=== PATIENT | male | born 1940 | race Caucasian/White ===

== ENCOUNTER 2017-08-01 12:56 | Observation (INO) ==
[2017-08-01] MEDS ORDERED: LABETALOL 100mg/20ml INJECTION IVP ONE (13:09)
[2017-08-01] MEDS ORDERED: NS 1,000 ML IV ONE (13:26)
[2017-08-01] MEDS ORDERED: DiltiaZEM 25 MG/5 ML INJECTION IVP ONE ×2 (13:56→16:01)
--- NOTE | 2017-08-01 13:58 | Emergency Department Report ---
Cardiac General HPI - General Chief Complaint: Arrhythmia/Palpitations Stated Complaint: svt Time Seen by Provider: 08/01/17 13:09 - History of Present Illness HPI narrative: 76-year-old gentleman presents with tachycardia. He went to see Dr. Coles and while being checked and it was noted that his heart rate was 155. EKG was obtained which suggested SVTs and Dr. Coles contacted me to send him to the ED for evaluation. Patient arrives essentially asymptomatic, stating that he did not even know his heart rate had been running so fast. He said no fever or chills, no recent chest pain. No shortness of breath, although he has not been active recently. He did have a cardiac stent placed in December 2014 to repair "85% blockage". He takes lisinopril, a statin, daily aspirin. - Related Data Home Medications Medication Instructions Recorded Confirmed Aspirin [Ecotrin] 81 mg PO DAILY 07/23/17 08/01/17 Potassium 99 mg PO DAILY 07/23/17 08/01/17 Previous Rx's Medication Instructions Recorded Lisinopril [Prinivil] 20 mg PO DAILY #7 tab 07/23/17 Allergies Allergy/AdvReac Type Severity Reaction Status Date / Time Dyohebc-[id number]-Wvz Reductase Allergy Mild MYALGIAS Verified 08/01/17 13:12 Inhibitor prochlorperazine AdvReac Intermediate Verified 08/01/17 13:12 [From Compazine] Review of Systems All systems: reviewed and negative except as stated PFSH Patient Stated Medical History Cardiac Arrhythmia Yes: SVT Hypertension Yes - Social History Smoking status: Never smoker Substance use type: does not use Physical Exam - Limitations Limitations: no limitations - General General appearance: alert, in no apparent distress - Normal Exams: Head:: Normocephalic without trauma Chest/Respirations:: Clear all allen, with good airflow, and symmetry bilaterally Cardiovascular:: without murmur or gallop, Pulses 2+ all extremities, capillary refill, <2 seconds all extremities Abdomen:: Bowel sounds positive, soft, non-tender, non-distended, no hepatosplenomegaly, masses or bruits noted Neurological:: Patient is alert, and oriented, cranial nerves, motor/sensory/ cerebellar, exams w/o gross deficits, to observation Psychiatric:: Patient exhibits, appropriate attention, emotion and affect - Cardiovascular Cardiovascular exam: Present: tachycardia Course Vital Signs Temperature 98.0 F 08/01/17 12:43 Pulse Rate 155 H 08/01/17 12:43 Respiratory Rate 18 08/01/17 12:43 Blood Pressure 148/101 H 08/01/17 12:43 Pulse Oximetry 95 08/01/17 12:43 Temperature 98.0 F 08/01/17 12:43 Pulse Rate 156 H 08/01/17 13:10 Respiratory Rate 18 08/01/17 12:43 Blood Pressure 148/101 H 08/01/17 12:43 Pulse Oximetry 95 08/01/17 12:43 Cardiac General - [facility] Narrative Medical decision making narrative: EKG repeated on arrival to ED, atrial flutter appears unlikely at this time. Heart rate 155. IV placed and 1 L normal saline bolus. Patient given 10 mg of labetalol IV which had minimal impact. He was then given 10 mg of Cardizem. His heart rate decreased from 155 down to 90. Since that time it has slowly but steadily increased and is currently 110-130 bpm. Enzymes are negative and other labs are appropriate including TSH. Patient has no previous history of A. flutter or A. fib. Dr. Duque agreed to consult on the patient, patient will be admitted to internal medicine service and hospitalist. Patient we will need drip overnight to help control his rate and may be appropriate for conversion after SYEDA tomorrow. This will be determined during his hospitalization. - Lab Data Result diagrams: 08/01/17 13:10 08/01/17 13:10 Lab Results 08/01/17 08/01/17 08/01/17 Range/Units 13:10 13:10 13:10 WBC 7.0 (4.5-11.0) T/MM3 RBC 5.57 (4.50-5.90) M/MM3 Hgb 17.0 (13.5-17.5) GM/DL Hct 50.8 (41-53) % MCV 91.2 (80-100) UM3 MCH 30.5 (26-34) UUG MCHC 33.5 (31-37) GM/DL RDW Std Deviation 44.3 (36.9-50.2) FL Plt Count 233 (130-400) T/MM3 MPV 10.9 (9.4-12.4) UM3 Immature Gran % (Auto) 0.1 (0.0-0.5) % Neut % (Auto) 58.1 (33-66) % Lymph % (Auto) 31.7 (23-45) % [place] % (Auto) 8.9 (0-9.0) % Eos % (Auto) 0.9 (0-4) % Baso % (Auto) 0.3 (0-2) % Neut # (Auto) 4.1 (1.8-7.7) T/MM3 Lymph # (Auto) 2.2 (1-4.8) T/MM3 [place] # (Auto) 0.6 (0-0.8) T/MM3 Eos # (Auto) 0.1 (0-0.5) T/MM3 Baso # (Auto) 0.0 (0-0.2) T/MM3 Abs Immat Gran (auto) 0.01 (0.00-0.03) T/MM3 Turbidity < 20 (0-20) Sodium 142 (134-144) MEQ/L Potassium 4.5 (3.6-5) MEQ/L Chloride 105 (98-107) MEQ/L Carbon Dioxide 25 (22-30) MEQ/L Anion Gap 12 (5-15) MEQ/L BUN 21.0 H (9-20) MG/DL Creatinine 1.2 (0.8-1.5) MG/DL GFR Calculation 59 BUN/Creatinine Ratio 18 (6-26) RATIO Glucose 105 (75-110) MG/DL Calculated Osmolality 276 (261-280) MOSM/KG Calcium 9.1 (8.4-10.2) MG/DL Total Bilirubin 0.80 (0.20-1.30) MG/DL Icterus Index < 2 (0-7) AST 22 (17-59) U/L ALT 33 (21-72) U/L Alkaline Phosphatase 80 (38-126) U/L Troponin I < 0.012 (0-0.12) ng/ml Total Protein 8.1 (6.3-8.2) G/DL Albumin 4.6 (3.5-5.0) G/DL Globulin 3.5 (2.4-3.6) G/DL Albumin/Globulin Ratio 1.3 (1.1-2.2) RATIO TSH 2.16 (0.47-4.68) MIU/L Specimen Hemolysis < 15 < 15 (0-25) Critical Care Time Critical Care Time: Yes Total Critical Care Time: 40 Attestation: I spent greater than 40 minutes in critical care of this patient due to new onset atrial flutter. Blood pressure did drop significantly considering his history of hypertension and heart rate was significantly elevated requiring direct intervention with IV labetalol and IV Cardizem. Time spent in critical care included direct care of patient as well as consult with specialist, management of symptoms and illness. Disposition Clinical Impression: Atrial flutter Disposition: 02 To [facility] Condition: Improved Prescriptions: No Action Aspirin [Ecotrin] 81 mg PO DAILY Lisinopril [Prinivil] 20 mg PO DAILY #7 tab Potassium 99 mg PO DAILY Referrals: Abdirahman Coles MD [Family Provider] - Time of Disposition: 15:33 - Seen By: physician
[2017-08-01] MEDS: SALINE FLUSH 10ml SYRINGE IVF PRN ×2 (13:59→16:05)
--- NOTE | 2017-08-01 14:06 | XRay Report ---
INDICATION: tachycardia PROCEDURE: CHEST 2-VIEWS UPRIGHT (PA & LAT) Encounter: Initial Comparison: July 23, 2017 Findings: The lungs are stable in appearance without new focal airspace consolidation. There is no pleural effusion or pneumothorax. The heart size, pulmonary vascularity and mediastinal contours are unchanged. IMPRESSION: Stable appearance of the chest without acute cardiopulmonary disease. .
--- NOTE | 2017-08-01 17:03 | History & Physical Report ---
History of Present Illness Date: 08/01/17 Chief complaint: A-fib with RVR HPI: Mr Truong is a pleasant 76 yr old male who act his pulse rate this morning and his machine read 155. He was concerned about this elevation and presented to see his primary care provider, Dr. Warren Coles at his clinic. Lead EKG was obtained that did reveal a tachycardia in the 160s. It was then sent by EMS to [facility] emergency room for acute evaluation. Whether evaluation including laboratory studies were obtained. CBC was normal, chemistry panel unremarkable. Initial troponin undetectable. TSH 2.16. Initial 12-lead EKG did reveal a rate of 155 with atrial flutter, rapid ventricular response. Patient was given 10 milligrams of IV Cardizem and 10 milligrams of IV labetalol. Initially rate decreased into the 80s, however, again increased to the 150s. At that time a repeat dose of Cardizem 10 milligrams IV was given and within the next hour patient did convert to normal sinus rhythm at time of admission. The hospitalist service contacted and accepted patient for outpatient admission for further evaluation and treatment. He has been under the cardiology care of Dr. Smith with [facility]. Review of Systems All systems PM: 10-point ROS was reviewed, no additional remarkable complaints except - Cardiovascular Cardiovascular: Present: chest pain (left anterior) - Respiratory Respiratory: Present: dyspnea Past Medical History HTN Diverticular disease BPH CAD Lower extremity cramping Surgical History: Cardiac stent- 12/2014 (Dr Smith). Colonoscopy- last in 2009 Family History Updates: Father-prostate cancer. Mother-brain tumor. Siblings with colon cancer and sleep apnea - Social History Smoking status: Never smoker Substance use type: does not use Alcohol intake frequency: does not drink Housing: house Household members: spouse Current residence: Apartment/Private Home Social history: PCP Dr Warren Coles Grill Attendant- Dr John Smith Medications Home Medications Medication Instructions Recorded Confirmed Type Aspirin [Ecotrin] 81 mg PO DAILY 07/23/17 08/01/17 History Potassium 99 mg PO DAILY 07/23/17 08/01/17 History Allergies Allergy/AdvReac Type Severity Reaction Status Date / Time Fwrcjvx-Trr-Jpl Reductase Allergy Mild MYALGIAS Verified 08/01/17 13:12 Inhibitor prochlorperazine AdvReac Intermediate Verified 08/01/17 13:12 [From Compazine] Exam Vital Signs: Temperature 98.0 F 08/01/17 12:43 Pulse Rate 108 H 08/01/17 16:40 Respiratory Rate 23 08/01/17 16:40 Blood Pressure 133/90 H 08/01/17 16:40 Pulse Oximetry 96 08/01/17 16:30 Telemetry Rhythm: Sinus Rhythm - Constitutional Present: no acute distress, well nourished, well developed - Routine HEENT Exam Eye: Present: EOMI ENT: Present: mucous membranes moist, dentition normal - Routine Respiratory Exam Present: CTA bilaterally. Absent: wheezes - Routine Cardiovascular Exam Present: RRR, S1, S2. Absent: murmur - Routine Abdominal Exam Present: soft, normoactive bowel sounds, non distended. Absent: tenderness - Routine Extremities Exam Present: no edema, full ROM, pulses intact - Routine Skin Exam Present: intact, dry, warm - Routine Neurological Exam Present: alert, oriented X3, CN II-XII intact, moving all extremities - Routine Psychiatric Exam Present: normal affect, cooperative Results - Labs CBC & Chem 7: 08/01/17 13:10 08/01/17 13:10 Assessment and Plan (1) Atrial flutter with rapid ventricular response Current visit: Yes Status: Acute Assessment and Plan: Impression A-Flutter with rapid ventricular rate Coronary artery disease Hypertension Diverticular disease Lower extremity cramps CKD stage 3-RLL 08/01/17 Plan Admit outpatient status under care of Dr. Levine for atrial flutter with rapid ventricular rate, converted on admission following 2nd dose of Cardizem. He will be admitted to the ICU for close monitoring. Given that he did convert to NSR, will initiate metoprolol 50mg twice a day, this evening and continue to monitor. Obtain ECHO and have it read by Dr Gutierrez tomorrow morning Serial troponins x2 and monitor on cardiac telemetry Consultation placed to Dr Curry (covering at [facility]). Continue on home Lisinopril Lovenox SQ daily for DVT ppx May have cardiac diet now and NPO after midnight. He does wish to be a full code and this order written Discuss further orders and plan of care with attending, Dr. Levine. At time of discharge medical care will return to primary care provider, Dr. Warren Fast DVT Prophylaxis: Lovenox Resuscitation Status: Full Code - Physician Narrative Physician: Karly Levine MD Narrative: Date: 08/01/17 Time: 1809 I have independently evaluated and examined this patient. I reviewed the chart, the patient's history, and the CARD MOUNTER/PA's documented findings as above. We discussed and formulated the assessment and plan as above with additions as below: Mr. Franks was seen with his and son at bedside in the emergency room. He reports checking his blood pressure and pulse daily since he was seen in the emergency room 07/23 and started on lisinopril for hypertension. EKG obtained in the emergency room at that time was sinus rhythm with occasional APCs. The patient reports heart rates generally in the 80s until today. He denied palpitations, chest pain, dyspnea, or lightheadedness today although describes some vague chest discomfort occasionally radiating toward the axilla lasting no more than a second or 2 over the past couple of months. He's not really experience that sensation today may have a slightly different sensation in the upper left chest wall. Heart rate while being evaluated in the emergency room ranged from 122-150. The patient's son expressed concern that the patient has been more fatigued since returning from [place] in October 2016 and more/ frequently since that time but is not aware of any focal deficits or acute changes. The patient is a vague historian but speech is fluent. Respirations are nonlabored with good airflow, there are faint crackles at the bases, no wheezing Irregular rhythm with tachycardia at time of initial assessment Abdomen benign Chest x-ray reviewed by myself-NAD EKG from 07/23 and current EKGs reviewed by myself with current EKGs demonstrating atrial flutter with RVR initially it appeared to be 2:1 conduction and follow-up tracing was more irregular with slower rate overall. There do not appear to be acute ST/T-wave changes although old inferior event cannot be excluded but seems unlikely based on the 07/23/17 EKG. History suggests conversion to atrial flutter within the past 24 hours, family prefers hospitalization for management and rate remains suboptimally controlled after initial IV medications. Hospitalized on observation basis in ICU; additional IV diltiazem to be given with plans to initiate diltiazem drip for rate control overnight. Case was discussed with Dr. Smith-cardiology consultation planned in a.m. to discuss management options further with possible SYEDA cardioversion. However shortly after arrival in ICU patient spontaneously converted to sinus rhythm. Continue to monitor in the event he goes in and out of rhythm and requires further medications. Initiate treatment with metoprolol for rate control/hypertension ( lisinopril discontinued). Echo obtained; further plans per cardiology in a.m. TSH normal, d-dimer to be obtained in a.m. GFR 59 c/w chronic kidney disease stage III Hospital Course Summary Disclaimer: The visit summary below is not to be considered part of the above Progress Note. Hospital Course: 08/01/17 Impression A-Flutter with rapid ventricular rate Coronary artery disease Hypertension Diverticular disease Lower extremity cramps Plan Admit outpatient status under care of Dr. Levine for atrial flutter with rapid ventricular rate, converted on admission following 2nd dose of Cardizem. He will be admitted to the ICU for close monitoring. Given that he did convert to NSR, will initiate metoprolol 50mg twice a day, this evening and continue to monitor. Obtain ECHO and have it read by Dr Gutierrez tomorrow morning Serial troponins x2 and monitor on cardiac telemetry Consultation placed to Dr Curry (covering at [facility]). Continue on home Lisinopril Lovenox SQ daily for DVT ppx May have cardiac diet now and NPO after midnight. He does wish to be a full code and this order written Discuss further orders and plan of care with attending, Dr. Levine. At time of discharge medical care will return to primary care provider, Dr. Warren Coles
[2017-08-01 17:14] VITALS: BMI 33.3
[2017-08-01] MEDS: ENOXAPARIN 40 MG/0.4 ML INJECTION SQ SCH (19:02)
[2017-08-02] MEDS: SALINE FLUSH 10ml SYRINGE IVF PRN (08:31)
[2017-08-02] MEDS: ENOXAPARIN 40 MG/0.4 ML INJECTION SQ SCH (08:31)
[2017-08-02] MEDS ORDERED: ASPIRIN *EC* 81 MG TABLET PO SCH (09:00)
[2017-08-02] MEDS ORDERED: LISINOPRIL 20 MG TABLET PO SCH (09:00)
[2017-08-02 14:22] VITALS: BP 107/58; PULSE 62; RESP 19; TEMP 98.1; O2SAT 95
--- NOTE | 2017-08-02 15:00 | Discharge Summary ---
Discharge Information Date of admission: 08/01/17 15:56 Anticipated date of discharge: 08/02/17 Attending Physician: Karly Levine MD Primary care physician: Abdirahman Coles MD - Discharge Diagnosis (1) Atrial flutter with rapid ventricular response Status: Acute A-Flutter with rapid ventricular rate Coronary artery disease-h/o Hypertension CKD stage 3 - Procedures Procedures: Echocardiogram 08/01/17-report pending - Laboratory Labs: CBC and CMP on admission were unremarkable, GFR 59, creatinine clearance 62 Troponin < 0.0123 D-dimer 192 TSH 2.16 - Radiology Radiology: Stricture admission was unremarkable. History of Present Illness HPI: Mr. Truong was seen with his and son at bedside in the emergency room. He reports checking his blood pressure and pulse daily since he was seen in the emergency room 07/23 and started on lisinopril for hypertension. EKG obtained in the emergency room at that time was sinus rhythm with occasional APCs. The patient reports heart rates generally in the 80s until today when HR was 155. He was subsequently seen his primary care physician's office and EKG demonstrated tachycardia with rate 160 and he was referred to [facility] emergency room for further evaluation. He denied palpitations, chest pain, dyspnea, or lightheadedness today although describes some vague chest discomfort occasionally radiating toward the axilla lasting no more than a second or 2 over the past couple of months. He's not really experiencing that sensation today may have a slightly different sensation in the upper left chest wall. Initial 12-lead EKG in ED revealed a rate of 155 with atrial flutter. Patient was given 10 milligrams of IV Cardizem and 10 milligrams of IV labetalol. Initially rate decreased into the 80s, however, again increased to the 150s. At that time a repeat dose of Cardizem 10 milligrams IV was given and within the next hour patient converted to normal sinus rhythm at time of admission to ICU. 08/02/17 15:14 Hospital Course This is a general summary of the patient's hospital course. For more details refer to the complete medical record. Hospital course: 08/01/17 Impression A-Flutter with rapid ventricular rate Coronary artery disease Hypertension Chronic kidney disease, stage III Diverticular disease Lower extremity cramps Hospital course Mr. Truong was monitored in the ICU overnight. He remained in sinus rhythm after converting shortly after arriving in the ICU. Metoprolol was initiated at a dose of 50 mg twice daily and lisinopril discontinued. Serial troponins, TSH, and d-dimer were unremarkable and twelve-lead EKG on 08/02 revealed sinus rhythm with a rate of 64, normal waveforms, and no acute changes. Echocardiogram was obtained but report pending at discharge. Case was reviewed with Dr. Smith and it was elected to continue metoprolol and initiate anticoagulation with Xarelto with follow-up in the office in the near future for reassessment. Indication for anticoagulation was reviewed with the patient and his . Hospital course was otherwise uncomplicated. Blood pressure prior to discharge was 107/58. Patient just follow-up with Dr. Coles in approximately one week. Discharge Plan - Med Rec/Dispo Referrals/Follow Up: Abdirahman Coles MD [Family Provider] - 1 Week Sonya Instructions: A-fib (Atrial Fibrillation) (GEN) Prescriptions: New Rivaroxaban [Xarelto] 20 mg PO WS #30 tab Metoprolol Tartrate [Lopressor] 50 mg PO BIDWM #60 tab Continue Aspirin [Ecotrin] 81 mg PO DAILY Potassium 99 mg PO DAILY Discontinued Lisinopril [Prinivil] 20 mg PO DAILY #7 tab - Disposition 01 Discharged Home, Self-Care
[2017-08-02] MEDS ORDERED: RIVAROXABAN 20 MG TABLET PO SCH (17:30)
--- NOTE | 2017-08-03 11:48 | Echocardiogram ---
PROCEDURE: Echo and Doppler PROCEDURE DATE: August 01, 2017 INDICATION: Atrial fibrillation. FINDINGS 1. Mild concentric left ventricular hypertrophy with preserved LV systolic function. Estimated ejection fraction is 60%. 2. Normal-appearing mitral valve with mild mitral regurgitation. No mitral stenosis. 3. Focally calcified aortic valve with mild aortic insufficiency. No aortic stenosis. 5. Normal right ventricular size and systolic function. 6. Mild tricuspid regurgitation. 7. Calculated pulmonary artery systolic pressure is 34 mmHg which is mildly elevated. 8. Moderate left atrial enlargement measuring 4.8 cm. 9. No pericardial effusion. MTDD
== END 2017-08-02 14:15 | disposition home or self-care (01) ==
LOC: CCU 12:56 → ED 12:56 → CCU 16:27
PROVIDERS: ADMIT Internal Medicine; ATTEND Internal Medicine